=== PATIENT | male | born 1945 | race Caucasian/White ===

== ENCOUNTER 2021-04-08 09:43 | Emergency (ER) | payer MEDICARE, OTHER | END 2021-04-08 10:45 | disposition home or self-care (01) | LOC: NAV ERS 09:43 | DX: R04.0 Epistaxis (principal); H60.11 Cellulitis of right external ear; I10 Essential (primary) hypertension; E78.00 Pure hypercholesterolemia, unspecified; Z79.899 Other long term (current) drug therapy | CPT/HCPCS: 99283 ==

== ENCOUNTER 2022-01-24 14:57 | Emergency (ER) | payer OTHER ==
[2022-01-24] MEDS ORDERED: Lidocaine 1% (PF) 30 ML VIAL ONE (16:12)
[2022-01-24] MEDS ORDERED: traMADol HCl 50 MG TAB ONE (16:12)
[2022-01-24] MEDS ORDERED: Boostrix 0.5 ML (Tdap) VIAL (>/=7 yrs of age) ONE (17:01)
[2022-01-24] MEDS ORDERED: Bacitracin 1 PK ONE (17:36)
== END 2022-01-24 17:40 | disposition home or self-care (01) ==
LOC: NAV ERS 14:57
DX: S61.211A Laceration without foreign body of left index finger without damage to nail, initial encounter (principal); I10 Essential (primary) hypertension; E78.00 Pure hypercholesterolemia, unspecified; W27.0XXA Contact with workbench tool, initial encounter; Z23 Encounter for immunization; Z79.899 Other long term (current) drug therapy
CPT/HCPCS: 12002; 90471; 90715; J2001

== ENCOUNTER 2022-02-07 08:32 | Emergency (ER) | payer OTHER | END 2022-02-07 09:12 | disposition home or self-care (01) | LOC: NAV ERS 08:32 | DX: Z48.02 Encounter for removal of sutures (principal); I10 Essential (primary) hypertension; E78.5 Hyperlipidemia, unspecified ==